=== PATIENT | female | born 1980 | race Caucasian/White ===

== ENCOUNTER 2017-08-31 13:29 | Outpatient (CLI) | payer OTHER ==
--- NOTE | 2017-08-31 14:33 | ULT ---
RIGHT BREAST SONOGRAM LIMITED: Date: 08/31/17 HISTORY: Right breast mass 8 o'clock position. FINDINGS: Sonographic evaluation of the 8 o'clock position of the right breast in region of palpable concern s hows scattered fibroglandular densities. No solid or cystic masses are apparent. IMPRESSION: No sonographic lesions are visualized at the 8 o'clock position of the right breast in the region of palpable concern. BIRADS Category 0 - incomplete exam. Further evaluation needed. Based on patient's age and clinical history, diagnostic mammogram evaluation is suggested for furthe r evaluation. The facility will notify the patient of the need for additional imaging services. POS: [facility]
== END 2017-08-31 13:30 | disposition home or self-care (01) ==
LOC: ULT 13:29
PROVIDERS: ATTEND Obstetrics & Gynecology
DX: N63.10 Unspecified lump in the right breast, unspecified quadrant (principal)

== ENCOUNTER 2017-09-04 10:19 | Outpatient (CLI) | payer OTHER ==
--- NOTE | 2017-09-04 12:22 | MMO ---
DIAGNOSTIC MAMMOGRAM: Date: 09/04/17 HISTORY: 37-year-old with history of right breast mass. FINDINGS: Bilateral craniocaudal, oblique mediolateral, and mediolateral digital screening mammograms obtained . Images also evaluated using computer-aided detection. Images demonstrate no definite evidence of masses or lesions. No significant evidence of microcalcif ications seen. There does appear to be some retraction of the right nipple. IMPRESSION: BIRADS 1: Negative Negative mammogram should not prevent further workup, including breast MRI, if clinically indicated. POS: [facility]
== END 2017-09-04 10:20 | disposition home or self-care (01) ==
LOC: MAMMO 10:19
PROVIDERS: ATTEND Obstetrics & Gynecology
DX: N63.10 Unspecified lump in the right breast, unspecified quadrant (principal)
CPT/HCPCS: 77066; G0204